=== PATIENT | female | born 1960 | race Caucasian/White ===

== ENCOUNTER 2019-02-25 11:56 | Emergency (ER) | payer MEDICAID, SELFPAY ==
[2019-02-25 13:19] VITALS: BP 133/84; PULSE 95; RESP 18; TEMP 36.6; O2SAT 95; BMI 28.3
--- NOTE | 2019-02-25 13:59 | XR_ITS ---
WS: [id number] Portable AP upright chest, 02/25/2019 Clinical Data: cough/congestion Comparison: Portable chest, 11/16/2018. Findings: No nodules, masses or effusions are seen. The heart is normal. The pulmonary vascularity is not increased. No pneumonia or pneumothorax is seen. There is an anterior cervical disc fusion. XR/XR chest 1V portable [id number] Impression: Negative chest.
[2019-02-25 14:41] LABS: Basophils # 0.1 10^3/uL (0.0-0.1); Eosinophils # 0.5 10^3/uL (0.0-0.8); Eosinophils % 3.4 %; Hematocrit 47.2 % (37.0-47.0); Hemoglobin 15.7 g/dL (11.5-15.3); Lymphocytes # 4.6 10^3/uL (0.8-4.8); Lymphocytes % 33.3 %; Mean Corpuscular HGB Conc 33.3 g/dL (30.0-36.0); Mean Corpuscular Hemoglobin 28.6 pg (28.0-34.0); Mean Corpuscular Volume 86.1 fL (81-99); Mean Platelet Volume 9.1 fL (7.4-10.4); Monocytes # 0.9 10^3/uL (0.2-0.9); Monocytes % 6.6 %; Neutrophils # 7.7 10^3/uL (1.8-7.7); Neutrophils % 55.4 %; Nucleated Red Blood Cells % 0 %; Platelet Count 435 10^3/cmm (130-400); Red Blood Count 5.48 10^6/uL (4.1-5.3); Red Cell Distribution Width 16.1 % (12.1-15.1); White Blood Count 13.9 10^3/uL (4.0-10.0)
--- NOTE | 2019-02-25 14:41 | ED_ITS ---
HPI - Back Pain/Injury General: Chief Complaint: Back Pain/Injury Stated Complaint: back pain/sob Time Seen by Provider: 02/25/19 14:41 Source: patient Mode of arrival: ambulatory Limitations: no limitations History of Present Illness: HPI Narrative: Patient patient is a 58-year-old female who presents to the ED today for complaints of cough and congestion over the past few days; she also has a complaint of acute on chronic lower back pain; patient states she has had back pain for many years with radiation into her legs; no new injury or trauma; she has no new neurological deficits; no saddle anesthesia or bowel or bladder dysfunction; she has not been running fevers; she has a history of COPD MD elicited complaint: back pain Pertinent past history: prior back pain Onset (ago): day(s) Timing: constant Similar Symptoms Previously: Yes Location: lumbar spine Radiation: left upper leg, right upper leg, left leg below the knee and right leg below the knee Exacerbating factors: movement and sitting upright Relieving factors: none Associated symptoms: Deny abdominal pain, chills, dysuria, fever(s), nausea, syncope or vomiting Work related injury: No Review of Systems Const: Denies: fever or chills Eyes: Denies: change in vision or blurry vision Card: Denies: chest pain, palpitations, irregular heart rhythm, lightheadedness, syncope or shortness of breath on exertion Resp: Reports: productive cough and chest congestion; Denies: shortness of breath, wheezing, stridor, pain on inspiration, change in phlegm color or coughing up blood GI: Denies: abdominal pain, nausea, vomiting, heartburn/indigestion or diarrhea : Denies: painful urination Musc: Reports: back pain; Denies: neck pain or joint pain Skin/Breast: Denies: rash PFSH ED PFSH: Statuses (acute, chronic, etc) shown below reflect problem list status a s previously entered and may not be historically accurate Social History Smoking and tobacco status: current every day smoker Physical Exam Const: COMMON NORMALS: no apparent distress, oriented x3 and alert GENERAL APPEARANCE: cooperative HENMT: COMMON NORMALS: normocephalic, head/scalp atraumatic, external ears normal, EAC's normal, TM's normal bilaterally and external nose normal HEAD & SCALP: normal to inspection, normocephalic and atraumatic FACE & SINUS: normal facial exam NOSE: external nose normal EXTERNAL EAR: Yes external ears normal EXTERNAL AUDITORY CANAL: EAC's normal TYMPANIC MEMBRANE: TM's normal bilaterally MOUTH: oral and palatal mucosa normal THROAT: posterior oropharynx normal, tonsils normal and uvula midline Eye: COMMON NORMALS: PERRL and EOMs intact bilaterally PUPIL: Yes PERRL Neck/C-Spine: COMMON NORMALS: full ROM, no lymphadenopathy, supple and no meningeal signs Resp: COMMON NORMALS: normal respiratory effort, no retractions and no use of accessory muscles AUSCULTATION: wheezes expiratory wheezes, scattered wheezes and throughout Cardio: COMMON NORMALS: regular rate and regular rhythm RATE: regular rate RHYTHM: regular rhythm GI: COMMON NORMALS: normal to inspection, nondistended, normoactive bowel sounds, soft to palpation, non-tender, no hepatosplenomegaly and no masses PALPATION: Yes soft and Yes no hepatosplenomegaly Back/Pelvis: LUMBAR SPINE/LOWER BACK: Yes lumbar spinal tenderness Lumbar spinal tenderness location: L3, L4 and L5 and Yes paraspinal muscle tenderness Lumbar paraspinal muscle tenderness: bilateral Extremity: COMMON NORMALS: normal to inspection GENERAL: Yes normal exam except as noted Neuro: COMMON NORMALS: oriented x3 SENSORIUM/ORIENTATION: Yes alert MENINGEAL SIGNS: Yes no meningeal signs Course Vital Signs: Vital signs: Vital Signs Temperature 97.9 F 02/25/19 13:19 Pulse Rate 102 H 02/25/19 15:42 Respiratory Rate 18 02/25/19 15:37 Blood Pressure 133/84 02/25/19 13:19 Pulse Oximetry 95 02/25/19 15:37 MDM - Back Pain/Injury Lab Data: Labs: Lab Results 02/25/19 02/25/19 Range/Units 14:33 14:33 WBC 13.9 H (4.0-10.0) 10^3/ uL RBC 5.48 H (4.1-5.3) 10^6/u L Hgb 15.7 H (11.5-15.3) g/dL Hct 47.2 H (37.0-47.0) % MCV 86.1 (81-99) fL MCH 28.6 (28.0-34.0) pg MCHC 33.3 (30.0-36.0) g/dL RDW 16.1 H (12.1-15.1) % Plt Count 435 H (130-400) 10^3/c mm MPV 9.1 (7.4-10.4) fL Neut % (Auto) 55.4 % Lymph % (Auto) 33.3 % [place] % (Auto) 6.6 % Eos % (Auto) 3.4 % Baso % (Auto) 1.0 % Neut # (Auto) 7.7 (1.8-7.7) 10^3/u L Lymph # (Auto) 4.6 (0.8-4.8) 10^3/u L Mobile # (Auto) 0.9 (0.2-0.9) 10^3/u L Eos # (Auto) 0.5 (0.0-0.8) 10^3/u L Baso # (Auto) 0.1 (0.0-0.1) 10^3/u L Nucleated RBC % (a uto) 0 % Nucleated RBCs # 0.0 /100WBC Sodium 133 L (136-145) mmol/L Potassium 4.1 (3.5-5.1) mmol/L Chloride 94 L (98-107) mmol/L Carbon Dioxide 26 (22-29) mmol/L Anion Gap 17.1 (5-19) BUN 11 (6-20) mg/dL Creatinine 0.7 (0.5-0.9) mg/dL GFR Calculation 86.2 L (90-130) mL/min Glucose 95 (74-109) mg/dL Calcium 10.4 H (8.6-10.0) mg/Dl Total Bilirubin 0.2 (0.15-1.2) mg/dL AST 10 (0-32) U/L ALT 12 (0-33) U/L Alkaline Phosphata se 113 H (35-105) IU/L Total Protein 8.0 (6.6-8.7) g/dL Albumin 4.4 (3.5-5.2) g/dL Globulin 3.6 (1.3-4.6) g/dL Imaging Data^: CXR: Radiologist's impression: [address] [address] XRay Report Signed Patient: Mackenzie Garcia MR#: [id number] : 1960 Acct:[id number] Age/Sex: 58 / F ADM Date: 02/25/19 Loc: ER Attending Dr: Ordering Physician: Jelly Navarro Date of Service: 02/25/19 Procedure(s): XR chest 1V portable [id number] Accession Number(s): [id number] Report Number: [id number] WS: [id number] Portable AP upright chest, 02/25/2019 Clinical Data: cough/congestion Comparison: Portable chest, 11/16/2018. Findings: No nodules, masses or effusions are seen. The heart is normal. The pulmonary vascularity is not increased. No pneumonia or pneumothorax is seen. There is an anterior cervical disc fusion. XR/XR chest 1V portable [id number] Impression: Negative chest. Dictated By: Carolee Dwyer MD Signed By: Carolee Dwyer MD Signed Date/Time:02/25/191412 DD/ 11 Discharge Plan Discharge Patient Disposition: Home, Self-Care Clinical Impression: Acute exacerbation of chronic low back pain, Acute exacerbation of chronic obstructive pulmonary disease Condition: Stable Prescriptions: New prednisone 10 mg tablet 60 mg PO DAILY 5 Days Qty: 30 RF: 0 doxycycline monohydrate 100 mg capsule 100 mg PO Q12H 7 Days Qty: 14 RF: 0 No Action alprazolam [Xanax] 0.25 mg tablet 0.25 mg PO .every 6 hours PRN (Reason: anxiety) Qty: 45 RF: 0 levalbuterol tartrate 45 mcg/actuation HFA aerosol inhaler 2 inh INHALATION Q6H PRN (Reason: shortness of breath or wheezing) Qty: 15 RF: 3 Serevent Diskus 50 mcg/dose Blister With Device 1 inh INHALATION BID RF: 0 Xopenex HFA 45 mcg/actuation Hfa Aerosol Inhaler 2 puff INHALATION QID RF: 0 Referrals: Davis Atkinson MD [Primary Care Provider] - Discharge Diet: Usual diet Patient Instructions: Chronic Obstructive Pulmonary Disease (ED), Chronic Back Pain (ED) Activity Restrictions/Additional Instructions: Follow-up with primary care in a week for continued symptoms. Coding Level of Care Code ED Char Filter Tank Tender Head for Chg Fwd Exam Problem Focused
[2019-02-25 15:09] LABS: Alanine Aminotransferase 12 U/L (0-33); Albumin Level 4.4 g/dL (3.5-5.2); Alkaline Phosphatase 113 IU/L (35-105); Anion Gap 17.1 (5-19); Aspartate Amino Transferase 10 U/L (0-32); Blood Urea Nitrogen 11 mg/dL (6-20); Calcium 10.4 mg/Dl (8.6-10.0); Carbon Dioxide 26 mmol/L (22-29); Chloride 94 mmol/L (98-107); Globulin 3.6 g/dL (1.3-4.6); Glomerular Filtration Rate 86.2 mL/min (90-130); Glucose 95 mg/dL (74-109); Potassium 4.1 mmol/L (3.5-5.1); Sodium 133 mmol/L (136-145); Total Bilirubin 0.2 mg/dL (0.15-1.2)
[2019-02-25 15:10] LABS: Slide Review Slide Review Perform
[2019-02-25] MEDS: ipratropium 0.5 mg/2.5 mL Neb INHALATION (15:36)
[2019-02-25 15:37] VITALS: PULSE 102; RESP 18; O2SAT 95
[2019-02-25 15:42] VITALS: PULSE 102
[2019-02-25 15:48] VITALS: BP 111/87; PULSE 102; RESP 20; O2SAT 92
== END 2019-02-25 15:48 | disposition home or self-care (01) ==
PROVIDERS: Physician Assistant; Emergency Provider Emergency Medicine; Family Provider Internal Medicine; PCP Internal Medicine
DX: G89.29 Other chronic pain (principal); M54.5 Low back pain; J44.1 Chronic obstructive pulmonary disease with (acute) exacerbation; F17.210 Nicotine dependence, cigarettes, uncomplicated
CPT/HCPCS: 36415; 71045; 80053; 85025; 99281; 99283; J7611; J7644

== ENCOUNTER 2019-03-12 13:07 | Outpatient (RCR) | payer MEDICAID, SELFPAY | END 2019-03-22 23:59 | disposition home or self-care (01) | LOC: SPT 13:07 | PROVIDERS: Family Provider Internal Medicine; PCP Internal Medicine; Visit Provider Internal Medicine | DX: G89.29 Other chronic pain (principal); M54.5 Low back pain | CPT/HCPCS: 97110; 97161 ==

== ENCOUNTER 2019-03-25 06:00 | Outpatient (RCR) | payer MEDICAID, SELFPAY | END 2019-04-10 23:00 | disposition home or self-care (01) | LOC: SPT 06:00 | PROVIDERS: Family Provider Internal Medicine; PCP Internal Medicine; Visit Provider Internal Medicine | DX: Z76.89 Persons encountering health services in other specified circumstances (principal) ==

== ENCOUNTER 2019-08-26 19:36 | Emergency (ER) | payer MEDICAID, SELFPAY ==
[2019-08-26] VITALS (8 sets, daily range): BP systolic 117–156; BP diastolic 81–94; PULSE 81–91; RESP 16–17; TEMP 37.1; O2SAT 92–96; BMI 28.5
[2019-08-26 19:55] LABS: Glucose Point of Care 175 mg/dL (70-110)
[2019-08-26 20:26] LABS: Basophils # 0.1 10^3/uL (0.0-0.1); Basophils % 0.7 %; Eosinophils # 0.4 10^3/uL (0.0-0.8); Eosinophils % 3.4 %; Hematocrit 41.9 % (37.0-47.0); Lymphocytes # 2.6 10^3/uL (0.8-4.8); Lymphocytes % 21.2 %; Mean Corpuscular Hemoglobin 26.7 pg (28.0-34.0); Mean Platelet Volume 9.4 fL (7.4-10.4); Monocytes % 8.5 %; Nucleated Red Blood Cells % 0 %; Platelet Count 373 10^3/cmm (130-400); Red Blood Count 4.87 10^6/uL (4.1-5.3); Red Cell Distribution Width 15.9 % (12.1-15.1); White Blood Count 12.2 10^3/uL (4.0-10.0)
--- NOTE | 2019-08-26 20:41 | ED_ITS ---
HPI - Abdominal Pain General: Chief Complaint: Abdominal Pain Stated Complaint: CRAMPS Time Seen by Provider: 08/26/19 19:51 History of Present Illness: HPI narrative: 58-year-old lady with 2 distinct complaints. The first is that of discomfort swelling and redness around her left eye. She states her vision is fine. No intense pain with extraocular movements. She has had a low-grade temp of 99 the past couple of days. She has a history of periorbital cellulitis on the right. The second complaint is that of abdominal cramping on and off for 2 months. No vaginal bleeding. She states she has vaginal itching. No vomiting or diarrhea. MD elicited complaint: abdominal pain and other (Pain and swelling around the eye, left side) Pertinent past history: other (Periorbital cellulitis on the right) Onset (ago): day(s) (3) Pain Consistency: intermittent Location: Periumbilical and Suprapubic Severity: similar to previous episodes Quality: cramping Radiation: suprapubic Migration to: no migration Relieving factors: nothing Associated Symptoms: Reports GI cramping and fever(s); Denies coffee ground emesis, diarrhea, dysuria, hematuria, hematemesis, loose stools, nausea and vomiting Review of Systems Const: Reports: fever(s) Eyes: Denies: change in vision or blurry vision ENMT: Denies: odynophagia, swelling of lips/tongue, bleeding gums, dental pain, change in hearing, epistaxis, post nasal drip or sinus pain Card: Denies: chest pain, palpitations, irregular heart rhythm, edema, swelling of feet/ankles, dyspnea on exertion or orthopnea Resp: Denies: dyspnea, productive cough, non-productive cough or wheezing GI: Reports: GI cramping; Denies: nausea, vomiting, hematemesis, coffee ground emesis or diarrhea : Denies: dysuria or hematuria Musc: Denies: neck pain, back pain, joint redness or joint warmth Skin/Breast: Denies: rash, pruritus or erythema Neuro: Denies: headache(s), dizziness, vertigo, confusion or seizure-like activity Psych: Denies: anxiety, visual hallucinations or auditory hallucinations PFSH ED PFSH: Family History Grandmother Diabetes Social History Smoking and tobacco status: current every day smoker Female Reproductive History: : 4 Physical Exam Const: GENERAL APPEARANCE: well developed ORIENTATION/CONSCIOUSNESS: Yes oriented to person, Yes oriented to place and Yes oriented to time HENMT: COMMON NORMALS: external ears normal and Normal external nose present FACE & SINUS: erythema on the left (With mild swelling) periorbital NOSE: Normal external nose present and No nasal discharge present EXTERNAL EAR: Yes external ears normal MOUTH: tongue normal Eye: COMMON NORMALS: Equal, round and reactive pupils present, EOMs intact bilaterally and conjunctivae normal EYELID: eyelids normal CONJUNCTIVA: Yes conjunctivae normal PUPIL: Yes Equal, round and reactive pupils present Neck/C-Spine: GENERAL: No tracheal deviation Chest: COMMONS NORMALS: normal inspection of the chest CHEST: No tenderness Resp: COMMON NORMALS: clear to auscultation bilaterally EFFORT & INSPECTION: No tachypneic, No respiratory distress, No retractions, No uses accessory muscles and No tracheal deviation AUSCULTATION: clear to auscultation bilaterally, no rhonchi, no wheezes and lung sounds not diminished Cardio: COMMON NORMALS: regular rate and regular rhythm RATE: regular rate RHYTHM: regular rhythm HEART SOUNDS: no murmurs PERIPHERAL PULSES: radial pulses present GI: INSPECTION: No abdominal distension AUSCULTATION: No Hyperactive bowel sounds present and No Hypoactive bowel sounds present PALPATION: No Guarding due to palpation present (GI) and No Rigid due to palpation PERCUSSION: no dullness to percussion and no tympanic to percussion : COMMON NORMALS: Yes no CVA tenderness BLADDER/KIDNEY EXAM: Yes no CVA tenderness Back/Pelvis: COMMON NORMALS: no CVA tenderness Neuro: SENSORIUM/ORIENTATION: Yes oriented to person, Yes oriented to place and Yes oriented to time Psych: COMMON NORMALS: mental status grossly normal Course Vital Signs: Vital signs: Vital Signs Temperature 98.7 F 08/26/19 19:37 Pulse Rate 86 08/26/19 22:21 Respiratory Rate 16 08/26/19 22:21 Blood Pressure 122/87 08/26/19 22:21 Pulse Oximetry 92 08/26/19 22:21 MDM - Abdominal Pain MDM Narrative: Medical decision making narrative: Urinalysis does not reveal urinary tract infection. Symptoms are suspicious for bacterial vaginosis. She also probably has early periorbital cellulitis. 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 She will also be placed on Flagyl for bacterial vaginosis. Primary care follow-up. Lab Data: Labs: Lab Results 08/26/19 08/26/19 08/26/19 Range/Units 19:49 20:18 20:18 WBC 12.2 H (4.0-10.0) 10^3/ uL RBC 4.87 (4.1-5.3) 10^6/u L Hgb 13.0 (11.5-15.3) g/dL Hct 41.9 (37.0-47.0) % MCV 86.0 (81-99) fL MCH 26.7 L (28.0-34.0) pg MCHC 31.0 (30.0-36.0) g/dL RDW 15.9 H (12.1-15.1) % Plt Count 373 (130-400) 10^3/c mm MPV 9.4 (7.4-10.4) fL Neut % (Auto) 66.0 % Lymph % (Auto) 21.2 % [place] % (Auto) 8.5 % Eos % (Auto) 3.4 % Baso % (Auto) 0.7 % Neut # (Auto) 8.0 H (1.8-7.7) 10^3/u L Lymph # (Auto) 2.6 (0.8-4.8) 10^3/u L [place] # (Auto) 1.0 H (0.2-0.9) 10^3/u L Eos # (Auto) 0.4 (0.0-0.8) 10^3/u L Baso # (Auto) 0.1 (0.0-0.1) 10^3/u L Nucleated RBC % (a uto) 0 % Nucleated RBCs # 0.0 /100WBC Sodium 136 (136-145) mmol/L Potassium 3.5 (3.5-5.1) mmol/L Chloride 102 (98-107) mmol/L Carbon Dioxide 22 (22-29) mmol/L Anion Gap 15.5 (5-19) BUN 5 L (6-20) mg/dL Creatinine 0.6 (0.5-0.9) mg/dL GFR Calculation 103.0 (90-130) mL/min Glucose 130 H (65-115) mg/dL POC Glucose 175 (70-110) mg/dL Calculated Osmolal ity 279 L (285-295) mOsm/k g Lactate (0.5-2.2) mmol/L Calcium 9.4 (8.5-10.5) mg/dL Total Bilirubin 0.2 (0.15-1.2) mg/dL AST 12 (0-32) U/L ALT 10 (0-33) U/L Alkaline Phosphata se 65 (35-105) IU/L C-Reactive Protein 8.7 H (0.0-4.9) mg/L Total Protein 6.9 (6.6-8.7) g/dL Albumin 3.9 (3.5-5.2) g/dL Globulin 3.0 (1.3-4.6) g/dL Lipase 28 (13-60) U/L Urine Color (Yellow) Urine Appearance (CLEAR) Urine pH (5-7) Ur Specific Gravit y (1.005-1.030) Urine Protein (Negative) Urine Glucose (UA) (Normal) Urine Ketones (Negative) Urine Blood (Negative) Urine Nitrate (Negative) Urine Bilirubin (NEGATIVE) Urine Urobilinogen (Negative) mg/dL Ur Leukocyte Merary ase (Negative) Urine RBC (0-2) /hpf Urine WBC (0-5) /hpf Ur Squamous Epith Cells (0-5) Amorphous Sediment Urine Bacteria (NONE) Urine Mucus 08/26/19 08/26/19 Range/Units 20:18 20:29 WBC (4.0-10.0) 10^3/ uL RBC (4.1-5.3) 10^6/u L Hgb (11.5-15.3) g/dL Hct (37.0-47.0) % MCV (81-99) fL MCH (28.0-34.0) pg MCHC (30.0-36.0) g/dL RDW (12.1-15.1) % Plt Count (130-400) 10^3/c mm MPV (7.4-10.4) fL Neut % (Auto) % Lymph % (Auto) % [place] % (Auto) % Eos % (Auto) % Baso % (Auto) % Neut # (Auto) (1.8-7.7) 10^3/u L Lymph # (Auto) (0.8-4.8) 10^3/u L [place] # (Auto) (0.2-0.9) 10^3/u L Eos # (Auto) (0.0-0.8) 10^3/u L Baso # (Auto) (0.0-0.1) 10^3/u L Nucleated RBC % (a uto) % Nucleated RBCs # /100WBC Sodium (136-145) mmol/L Potassium (3.5-5.1) mmol/L Chloride (98-107) mmol/L Carbon Dioxide (22-29) mmol/L Anion Gap (5-19) BUN (6-20) mg/dL Creatinine (0.5-0.9) mg/dL GFR Calculation (90-130) mL/min Glucose (65-115) mg/dL POC Glucose (70-110) mg/dL Calculated Osmolal ity (285-295) mOsm/k g Lactate 1.2 (0.5-2.2) mmol/L Calcium (8.5-10.5) mg/dL Total Bilirubin (0.15-1.2) mg/dL AST (0-32) U/L ALT (0-33) U/L Alkaline Phosphata se (35-105) IU/L C-Reactive Protein (0.0-4.9) mg/L Total Protein (6.6-8.7) g/dL Albumin (3.5-5.2) g/dL Globulin (1.3-4.6) g/dL Lipase (13-60) U/L Urine Color Straw (Yellow) Urine Appearance Hazy A (CLEAR) Urine pH 5 (5-7) Ur Specific Gravit y 1.010 (1.005-1.030) Urine Protein Neg (Negative) Urine Glucose (UA) 4+ H (Normal) Urine Ketones Negative (Negative) Urine Blood Neg (Negative) Urine Nitrate Negative (Negative) Urine Bilirubin Neg (NEGATIVE) Urine Urobilinogen Norm (Negative) mg/dL Ur Leukocyte Merary ase Negative (Negative) Urine RBC 0-4 H (0-2) /hpf Urine WBC None (0-5) /hpf Ur Squamous Epith Cells 5-10 H (0-5) Amorphous Sediment Not Reportable Urine Bacteria 1+ H (NONE) Urine Mucus 1+ Discharge Plan Discharge Patient Disposition: Home, Self-Care Clinical Impression: Vaginosis, Periorbital cellulitis of left eye Condition: Stable Prescriptions: New doxycycline hyclate 100 mg capsule 100 mg PO BID 10 Days Qty: 20 RF: 0 Flagyl 500 mg tablet 500 mg PO Q8H 10 Days Qty: 30 RF: 0 No Action tizanidine 4 mg capsule 4 mg PO BID PRN (Reason: muscle spasticity) Qty: 60 RF: 0 aripiprazole 2 mg tablet 2 mg PO QDAY Qty: 30 RF: 5 Synjardy 12.5-1,000 mg tablet 1 tab PO BID Qty: 60 RF: 3 albuterol sulfate [Proventil HFA] 90 mcg/actuation HFA aerosol inhaler 1 inh INHALATION QID PRN (Reason: shortness of breath or wheezing) Qty: 8 RF: 3 omeprazole 20 mg capsule,delayed release(DR/EC) 20 mg PO DAILY 84 Days Qty: 30 RF: 5 gabapentin 800 mg tablet 800 mg PO TID Qty: 90 RF: 1 Serevent Diskus 50 mcg/dose blister with device 1 inh INHALATION BID Qty: 60 RF: 3 glimepiride 4 mg tablet 4 mg PO BID Qty: 60 RF: 5 ibuprofen 200 mg Tablet 200 mg PO Q6H PRN (Reason: Pain) RF: 0 venlafaxine 75 mg capsule,extended release 24hr 225 mg PO DAILY MDD 3 RF: 0 Xanax 0.25 mg tablet 0.25 mg PO Q6H PRN (Reason: anxiety) RF: 0 Celebrex 400 mg capsule 400 mg PO DAILY RF: 0 Discharge Orders: Discharge Order (Routine); Ordered 08/26/19 Ordered By: Bart Pappas Referrals: Davis Atkinson MD [Primary Care Provider] - 4-7 days Discharge Diet: Usual diet Discharge Activity: Increase activity as tolerated Patient Instructions: Bacterial Vaginosis (ED), Periorbital Cellulitis Coding Level of Care Code ED Manager Clinical Pharmacy for Chg Fwd Exam Comprehensive
[2019-08-26 20:47] LABS: Lactate (Lactic Acid level) 1.2 mmol/L (0.5-2.2)
[2019-08-26 20:48] LABS: Alanine Aminotransferase 10 U/L (0-33); Albumin Level 3.9 g/dL (3.5-5.2); Alkaline Phosphatase 65 IU/L (35-105); Anion Gap 15.5 (5-19); Aspartate Amino Transferase 12 U/L (0-32); Blood Urea Nitrogen 5 mg/dL (6-20); Calcium 9.4 mg/dL (8.5-10.5); Carbon Dioxide 22 mmol/L (22-29); Chloride 102 mmol/L (98-107); Glucose 130 mg/dL (65-115); Lipase 28 U/L (13-60); Osmolality Calculated 279 mOsm/kg (285-295); Potassium 3.5 mmol/L (3.5-5.1); Sodium 136 mmol/L (136-145); Total Bilirubin 0.2 mg/dL (0.15-1.2); Total Protein 6.9 g/dL (6.6-8.7)
[2019-08-26 20:57] LABS: Add Urine Microscopic? YES; Bilirubin Urine Neg (NEGATIVE); Blood Urine Neg (Negative); Glucose Urine UA 4+ (Normal); Ketones Urine Negative (Negative); Leukocyte Esterase Urine Negative (Negative); Nitrate Urine Negative (Negative); Protein Urine Neg (Negative); Urine Appearance Hazy (CLEAR); Urine Color Straw (Yellow); Urobilinogen Urine Norm (Negative); pH Urine 5 (5-7)
[2019-08-26 21:00] LABS: Add Urine Culture? No; Bacteria Urine 1+; Mucus Urine 1+; RBC Urine 0-4 /hpf (0-2)
[2019-08-26] MEDS: metroNIDAZOLE 500 MG Tablet PO (21:39)
[2019-08-26] MEDS: fluconazole 100 mg Tablet 150 MG PO (21:39)
[2019-08-26 21:40] LABS: C Reactive Protein 8.7 mg/L (0.0-4.9)
[2019-08-26] MEDS: oxyCODONE-APAP 5-325 mg Tablet 2 TAB PO (21:40)
[2019-08-26] MEDS: doxycycline 100 mg Tablet PO (21:40)
== END 2019-08-26 23:38 | disposition home or self-care (01) ==
PROVIDERS: Emergency Provider Emergency Medicine; PCP Internal Medicine
DX: N76.0 Acute vaginitis (principal); L03.213 Periorbital cellulitis; F17.210 Nicotine dependence, cigarettes, uncomplicated
CPT/HCPCS: 12345; 36415; 36416; 80053; 81001; 81003; 82962; 83605; 83690; 85025; 86140; 96360; 99282; 99283

== ENCOUNTER 2019-11-02 10:15 | Emergency (ER) | payer MEDICAID, SELFPAY ==
[2019-11-02 10:21] VITALS: BP 149/96; PULSE 95; RESP 18; TEMP 36.8; O2SAT 93; BMI 28.7
--- NOTE | 2019-11-02 10:30 | ED_ITS ---
HPI - General Adult General: Chief complaint: General Medical Stated complaint: FACE SWOLLEN Time Seen by Provider: 11/02/19 10:19 Source: patient Mode of arrival: ambulatory Limitations: no limitations History of Present Illness: HPI narrative: Patient is a 59-year-old female who presents to ED today with a complaint of facial swelling that she has noticed over the past 3 days. Patient tells me she feels like she has swollen under her eyes and over her maxillary sinuses as well as her nose. She is complaining of sinus pain and nasal discharge. She does tell me she has a history of allergic rhinitis. Patient reports being treated for a periorbital cellulitis a few months ago and states her pain/symptoms feel similar. She is not having any painful swallowing. No visual changes. Pain Consistency: constant Relieving factors: none Exacerbating factors: none Associated symptoms: Reports no associated symptoms; Deny headache(s), malaise, nausea, rash or vomiting Treatments prior to arrival: none Review of Systems Const: Denies: fever(s), chills, body aches, fatigue or malaise Eyes: Denies: change in vision, blurry vision, photophobia, floaters or seeing flashes ENMT: Reports: nasal discharge, nasal congestion and sinus pain; Denies: throat pain, enlarged tonsils, odynophagia, mouth pain, swelling of lips/tongue, oral sores, ear or mastoid pain, ear discharge or epistaxis GI: Denies: nausea or vomiting Musc: Denies: neck pain Skin/Breast: Denies: rash Neuro: Denies: headache(s) FORMERLY [facility], [facility]–1983 ED PFSH: Medical History (Updated 11/02/19 @ 10:34 by LISET Worrell) COPD (chronic obstructive pulmonary disease) Diabetes Family History Grandmother Diabetes Social History (Updated 10/17/19 @ 09:25 by SOL Garcia) Smoking and tobacco status: current every day smoker Alcohol intake: former Adopted: No Marital status: Legally Number of children: 4 service: No History of recent travel: No Current gender identity: Female Physical Exam Const: COMMON NORMALS: no acute distress, patient oriented x3, no limitations and alert HENMT: COMMON NORMALS: normocephalic, atraumatic, hearing grossly normal bilaterally, external ears normal, EAC's normal, TM's normal bilaterally, Normal nasal mucous membranes and turbinates present, moist oral mucous membranes, oropharynx normal and gingiva normal HEAD & SCALP: normal to inspection, normocephalic and atraumatic FACE & SINUS: sinus tenderness maxillary, erythema (to nose) and edema (nose-questionable whether this is just normal for patient) NOSE: Normal nares present, No nasal polyps present and Normal nasal mucous membranes and turbinates present EXTERNAL EAR: Yes external ears normal EXTERNAL AUDITORY CANAL: EAC's normal TYMPANIC MEMBRANE: TM's normal bilaterally MOUTH: Normal oral and palatal mucosa present, lip normal and tongue normal TEETH & GINGIVA: Yes edentulous THROAT: posterior oropharynx normal, tonsils normal and uvula midline Eye: COMMON NORMALS: Equal, round and reactive pupils present, EOMs intact bilaterally, conjunctivae normal and no scleral icterus GENERAL EYE: appearance normal, both eyes and all related structures PERIORBITAL: periorbital findings normal EYELID: eyelids normal CONJUNCTIVA: Yes conjunctivae normal PUPIL: Yes Equal, round and reactive pupils present OTHER: I do not appreciate any periorbital swelling or redness. Neck/C-Spine: COMMON NORMALS: full ROM, no lymphadenopathy and no meningeal signs Neuro: COMMON NORMALS: patient oriented x3 SENSORIUM/ORIENTATION: Yes alert MENINGEAL SIGNS: Yes no meningeal signs Skin: NARRATIVE SKIN EXAM: Normal skin exam apart from maybe some possible erythema to patient's nose. Course Vital Signs: Vital signs: Vital Signs Temperature 98.2 F 11/02/19 10:21 Pulse Rate 95 11/02/19 10:21 Respiratory Rate 18 11/02/19 10:21 Blood Pressure 149/96 11/02/19 10:21 Pulse Oximetry 93 11/02/19 10:21 MDM - General Adult MDM Narrative: Medical decision making narrative: Patient states her symptoms today are similar to when she had periorbital cellulitis however this note was reviewed by myself and her complaints at that time do not sound anything similar to what she is experiencing today. She is complaining of facial swelling however I do not appreciate much facial swelling. She possibly has some erythema and edema to her nose although this could just be normal for patient. She is tender to palpation over her maxillary sinuses and over her nose. There is no nasal abscess visualized. She has no neurological facial deficits. We will go ahead and treat her with Augmentin and Flonase for possible sinusitis. We will have her follow-up with ENT for further evaluation. Discharge Plan Discharge Patient Disposition: Home Clinical Impression: Cellulitis of external nose Sinusitis Qualifiers: Sinusitis location: maxillary Chronicity: acute Recurrence: not specified as recurrent Qualified Code(s): J01.00 - Acute maxillary sinusitis, unspecified Condition: Stable Prescriptions: New Augmentin 875-125 mg tablet 1 tab PO Q12H 7 Days Qty: 14 RF: 0 Flonase Allergy Relief 50 mcg/actuation spray,suspension 2 spray INTRANASAL DAILY PRN (Reason: nasal congestion) Qty: 9.9 RF: 0 No Action tizanidine 4 mg capsule 4 mg PO BID PRN (Reason: muscle spasticity) Qty: 60 RF: 0 prednisone 10 mg tablet See Rx Instructions .Route .COMPLEX Qty: 1 RF: 0 omeprazole 20 mg capsule,delayed release(DR/EC) 20 mg PO DAILY 84 Days Qty: 30 RF: 5 Serevent Diskus 50 mcg/dose blister with device 1 inh INHALATION BID Qty: 60 RF: 3 glimepiride 4 mg tablet 4 mg PO BID Qty: 60 RF: 5 Xanax 0.25 mg tablet 0.25 mg PO Q6H PRN (Reason: anxiety) Qty: 45 RF: 2 albuterol sulfate [Proventil HFA] 90 mcg/actuation HFA aerosol inhaler 1 inh INHALATION QID PRN (Reason: shortness of breath or wheezing) Qty: 8 RF: 3 aripiprazole 2 mg tablet 2 mg PO QDAY Qty: 30 RF: 5 Synjardy 12.5-1,000 mg tablet 1 tab PO BID Qty: 60 RF: 3 gabapentin 800 mg tablet 800 mg PO TID Qty: 90 RF: 1 ibuprofen 200 mg Tablet 200 mg PO Q6H PRN (Reason: Pain) RF: 0 venlafaxine 75 mg capsule,extended release 24hr 225 mg PO DAILY MDD 3 RF: 0 Celebrex 400 mg capsule 400 mg PO DAILY RF: 0 Discharge Orders: Discharge Order (Routine); Ordered 11/02/19 Ordered By: Jelly Navarro Referrals: Davis Atkinson MD [Primary Care Provider] - Activity Restrictions/Additional Instructions: As discussed we will have 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 You may return to the ED for worsening pain, swelling, redness, fevers, or any other concerns you may have. Coding Level of Care Code ED Microbiological Lab Technician for Hattie Blandon
== END 2019-11-02 10:35 | disposition home or self-care (01) ==
LOC: ER 11:08
PROVIDERS: Emergency Provider Physician Assistant; PCP Internal Medicine
DX: J01.00 Acute maxillary sinusitis, unspecified (principal); J34.0 Abscess, furuncle and carbuncle of nose; J44.9 Chronic obstructive pulmonary disease, unspecified; E11.9 Type 2 diabetes mellitus without complications; F17.210 Nicotine dependence, cigarettes, uncomplicated
CPT/HCPCS: 12345; 99282

== ENCOUNTER → 2020-08-11 13:09 | Outpatient (BNVA) | payer MEDICAID, SELFPAY | PROVIDERS: PCP Internal Medicine; Visit Provider Internal Medicine | DX: Z01.812 Encounter for preprocedural laboratory examination (principal); Z20.822 Contact with and (suspected) exposure to COVID-19; Z11.52 Encounter for screening for COVID-19 | CPT/HCPCS: 87635 ==

== ENCOUNTER 2020-08-17 08:46 | Day surgery (SDC) | payer MEDICAID, SELFPAY ==
--- NOTE | 2020-08-17 09:09 | ANES.PREANE2 ---
Pre-Anesthetic Assessment Pre-Anesthetic Assessment: Height/Weight: Height 1.57 m Weight 68.946 kg Proposed Procedure: Operation Date: 08/17/20 10:45 Proposed Procedures p Colonoscopy 42852 Z12.11(Not Applicable) - Davis Atkinson MD Was Beta Seble taken within 24 hours: N/A Social: Social History: Tobacco and No alcohol Exam: Pre-Anes Outpt Exam: alert, oriented x 3 and regular rate & rhythm Airway: Submandibular: WNL Cervical ROM: WNL MP: 2 Dentition: False Pulmonary: Pulmonary: COPD GI: GI: GERD Metabolic: Metabolic: DM Neuropsych: Neuropsych: Anxiety and Depression Anesthetic Plan: ASA status: 3 Anesthesia: MAC Risk of > 500 ml blood loss (7ml/kg in children): No PFSH Anesthesia PFSH: Medical History COPD (chronic obstructive pulmonary disease) Diabetes Surgical History H/O tubal ligation History of carpal tunnel surgery Family History Grandmother Diabetes Social History Smoking and tobacco status: current every day smoker Alcohol intake: former Adopted: No Marital status: Legally Number of children: 4 service: No History of recent travel: No Current gender identity: Female Data Anesthesia Cardiac Studies: No Data to Display
--- NOTE | 2020-08-17 09:29 | P.HP_ITS ---
Same Day Surgery H&P Indication for Procedure/HPI DATE OF PROCEDURE: August 17, 2020 CHIEF COMPLAINT/INDICATIONFOR SURGICAL PROCEDURE: Screening PREOP DIAGNOSIS: Screening PLANNED PROCEDRUE: Operation Date: 08/17/20 10:45 Proposed Procedures p Colonoscopy 86417 Z12.11(Not Applicable) - Davis Atkinson MD Medications/Allergies* Home Medications Medication Instructions Recorded Confirmed Type ibuprofen 200 mg PO Q6H PRN 08/26/19 08/14/20 History Allergies/Adverse Reactions Allergy/AdvReac Type Severity Reaction Status Date / Time No Known Allergies Allergy Verified 08/11/20 13:46 Pertinent History/Comorbid Conditions* Medical History (Updated 11/10/19 @ 00:00 by ) COPD (chronic obstructive pulmonary disease) Diabetes Surgical History (Updated 08/12/20 @ 12:20 by Magdalena Peguero DO) H/O tubal ligation History of carpal tunnel surgery Family History (Updated 02/27/19 @ 13:34 by SOL Garcia) Diabetes Grandmother Social History Smoking and tobacco status: current every day smoker Alcohol intake: former Adopted: No Marital status: Legally Number of children: 4 service: No History of recent travel: No Current gender identity: Female Pertinent Exam Findings alert, oriented x 3, clear to auscultation bilaterally, regular rate & rhythm, operative site marked and procedure specific exam findings Recommendations Surgery/Procedure today Coding Level of Care Code Acute 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
[2020-08-17 09:39] VITALS: BP 112/74; PULSE 92; RESP 18; TEMP 36.4; O2SAT 97
[2020-08-17 10:00] LABS: Glucose Point of Care 133 mg/dL (70-110)
[2020-08-17] MEDS: sodium chloride 0.9% 1,000 ML 30 ML IV (10:01)
[2020-08-17 11:15] VITALS: BP 79/57; PULSE 83; RESP 16; TEMP 36.3; O2SAT 97
[2020-08-17 11:29] VITALS: BP 101/78; PULSE 86; RESP 18; O2SAT 97
--- NOTE | 2020-08-17 15:28 | ANE.PACU2 ---
Inpatient post-anesthesia follow up: Airway intact: Yes Vital signs: Temperature 97.4 F Pulse Rate 86 Respiratory Rate 18 Blood Pressure 101/78 Pulse Oximetry 97 Oxygen Delivery Me thod Room Air Oxygen Flow Rate 3 Fraction of Inspir ed Oxygen Hydration adequate: Yes Nausea and vomiting: No Pain level: 1 Mental status: Baseline
== END 2020-08-17 11:52 | disposition home or self-care (01) ==
PROVIDERS: PCP Internal Medicine; Visit Provider Internal Medicine
PROC: 0DJD8ZZ Inspection of Lower Intestinal Tract, Via Natural or Artificial Opening Endoscopic (ICD-10-PCS; CPT 45378; principal; 2020-08-17 10:45)
DX: Z12.11 Encounter for screening for malignant neoplasm of colon (principal); J44.9 Chronic obstructive pulmonary disease, unspecified; E11.9 Type 2 diabetes mellitus without complications; F17.210 Nicotine dependence, cigarettes, uncomplicated; K21.9 Gastro-esophageal reflux disease without esophagitis; F41.9 Anxiety disorder, unspecified; F32.9 Major depressive disorder, single episode, unspecified; Z83.3 Family history of diabetes mellitus
CPT/HCPCS: 36416; 45378; 82962; 96360; J2704; J7030

== ENCOUNTER 2021-07-21 14:34 | Emergency (ER) | payer MEDICAID, SELFPAY ==
[2021-07-21 14:39] VITALS: BP 138/102; PULSE 104; RESP 20; TEMP 36.9; O2SAT 93
--- NOTE | 2021-07-21 15:51 | W.ED.GENADLT ---
HPI - General Adult General: Chief complaint: General Medical Stated complaint: high blood sugar/sweating/dizziness Time Seen by Provider: 07/21/21 15:29 Source: patient Mode of arrival: ambulatory Limitations: no limitations History of Present Illness: Patient is a 60-year-old female who presents to ED today with request for medication refills. Patient tells me she had a primary care provider down in [place] that was prescribing her medications however she has recently moved to the area and does not have a primary care provider yet. Patient states she was on medications for diabetes and COPD and states she has been out of them for almost a month. She states her blood sugars have been running high. She normally treated her diabetes with metformin and glimepiride. She states while on these medications her diabetes was controlled. She states earlier today she did feel a little sweaty but this has resolved since arrival to the ED. she is completely asymptomatic during my initial assessment. She states she does not want any kind of work-up/labs performed today. She is just kindly requesting refills until she can get a primary care provider. Associated symptoms: Reports dyspnea (chronic-at baseline); Deny chest pain, headache(s), malaise, nausea, rash, palpitations, syncope or vomiting Review of Systems Const: Denies: fever(s), chills, body aches, fatigue or malaise Eyes: Denies: change in vision or blurry vision Card: Denies: chest pain, palpitations, irregular heart rhythm, lightheadedness, syncope or dyspnea on exertion Resp: Reports: dyspnea (chronic-at baseline); Denies: productive cough or pain on inspiration GI: Denies: abdominal pain, nausea, vomiting, heartburn or diarrhea : Denies: dysuria Musc: Denies: neck pain, back pain or joint pain Skin/Breast: Denies: rash Neuro: Denies: headache(s), numbness in extremities, weakness in extremities, sensory changes or difficulty walking [facility] PFSH: Medical History COPD (chronic obstructive pulmonary disease) Diabetes Surgical History H/O tubal ligation History of carpal tunnel surgery Family History Grandmother Diabetes Social History Smoking and tobacco status: current every day smoker Alcohol intake: former Adopted: No Marital status: Legally Number of children: 4 service: No History of recent travel: No Current gender identity: Female Physical Exam Const: COMMON NORMALS: no acute distress, patient oriented x3, no limitations and alert GENERAL APPEARANCE: cooperative ORIENTATION/CONSCIOUSNESS: Yes awake, Yes oriented to person, Yes oriented to place and Yes oriented to time HENMT: COMMON NORMALS: normocephalic and atraumatic HEAD & SCALP: normal to inspection, normocephalic and atraumatic Resp: COMMON NORMALS: normal respiratory effort Cardio: COMMON NORMALS: regular rate and regular rhythm RATE: regular rate RHYTHM: regular rhythm GI: COMMON NORMALS: Soft to palpation and non-tender INSPECTION: Yes normal to inspection PALPATION: Yes Soft to palpation Extremity: COMMON NORMALS: normal to inspection, no clubbing, cyanosis or edema, no calf tenderness and no pedal edema Neuro: VÍCTOR COMA SCALE: document GCS findings Víctor coma scale eye opening: Spontaneous [place] coma scale verbal response: Orientated [place] coma scale motor response: Obey commands Víctor coma scale total score: 15 COMMON NORMALS: patient oriented x3, moves all extremities, no focal motor deficits, no sensory deficits noted and gait normal SENSORIUM/ORIENTATION: Yes alert, Yes oriented to person, Yes oriented to place and Yes oriented to time Skin: COMMON NORMALS: no rashes or lesions noted GENERAL SKIN EXAM: no rashes or lesions noted Course Vital Signs: Vital signs: Vital Signs Temperature 98.5 F 07/21/21 14:39 Pulse Rate 104 H 07/21/21 14:39 Respiratory Rate 20 H 07/21/21 14:39 Blood Pressure 138/102 07/21/21 14:39 Pulse Oximetry 93 07/21/21 14:[address] [facility] - General Adult Medical Decision Making Patient does not want any form of evaluation today. She is simply requesting refills on her chronic medications and a referral to a primary care provider Discharge Plan Discharge Patient Disposition: Home Clinical Impression: Encounter for medication refill Condition: Stable Prescriptions: Continued atorvastatin 10 mg tablet 10 mg PO BEDTIME Qty: 30 0RF metformin 1,000 mg tablet 1,000 mg PO BID Qty: 60 0RF glimepiride 4 mg tablet 4 mg PO BID Qty: 60 0RF omeprazole 20 mg capsule,delayed release(DR/EC) 20 mg PO DAILY Qty: 30 0RF duloxetine 60 mg capsule,delayed release(DR/EC) 60 mg PO DAILY Qty: 30 0RF Changed gabapentin 800 mg tablet 400 mg PO TID Qty: 90 0RF Serevent Diskus 50 mcg/dose blister with device 1 inh inhalation BID Qty: 60 0RF Rx Instructions: 1 inh inhalation; ProAir HFA 90 mcg/actuation HFA aerosol inhaler 1 puff inhalation Q6H PRN (Reason: shortness of breath or wheezing) Qty: 8.5 0RF Rx Instructions: 1 puff inhalation; No Action triamcinolone acetonide 0.1 % ointment 1 applic topical BID Qty: 80 1RF Rx Instructions: To itchy areas on arms and abdomen no more than 3wks/mo (DME) lancets [FreeStyle Lancets] 28 gauge misc See Rx Instructions .ROUTE .MEDSUPPLY Qty: 100 3RF Rx Instructions: one daily- glucose check OneTouch Ultra Blue Test Strip Strip See Rx Instructions .ROUTE .COMPLEX Qty: 100 0RF Dose Instruction: USE TO TEST ONCE DAILY Rx Instructions: USE TO TEST ONCE DAILY Discharge Orders: Discharge ED (Routine); Ordered 07/21/21 Ordered By: Jelly Navarro Activity Restrictions/Additional Instructions: I have placed a referral with case management to set you up with a primary care provider. You should hear from them within the next few days. If not please contact us so we can set you up with a primary care provider. You have been provided prescriptions for your normal medications. We will not continue filling routine medications from the emergency department. Coding Level of Care Code ED Entry Clerk for Hattie Fwd Exam Comprehensive
--- NOTE | 2021-07-23 09:20 | DCPLANNER ---
Addendum entered by Racquel Carter 09/23/21 09:41: Patient had a follow up appointment for patient with Internal Medicine with Dr. Atkinson on 08.09.21 - patient did attend appointment. Original Note: statistics manager had message to speak with patient about getting established with a primary care physician. Patient stated that she would like to see Dr. Atkinson. statistics manager called the office of Dr. Atkinson, spoke with Belen, gave clinic patients information, a follow up appointment was scheduled for Monday, August 09, 2021 at 1:[address] Atkinson. statistics manager gave patient the appointment information.
== END 2021-07-21 16:31 | disposition home or self-care (01) ==
PROVIDERS: Emergency Provider Physician Assistant
DX: Z76.0 Encounter for issue of repeat prescription (principal)
CPT/HCPCS: 99283

== ENCOUNTER 2022-01-08 13:17 | Emergency (ER) | payer MEDICAID, SELFPAY ==
[2022-01-08 13:19] VITALS: BP 114/58; PULSE 97; RESP 15; O2SAT 95; BMI 29.2
--- NOTE | 2022-01-08 13:33 | XRR_ITS ---
PROCEDURE INFORMATION: Exam: XR Right Ribs with PA Chest Exam date and time: 01/08/2022 2:58 PM Age: 61 years old Clinical indication: Injury or trauma; Fall; Rib area; Blunt trauma (contusions or hematomas) TECHNIQUE: Imaging protocol: Radiologic exam of the Right ribs with PA chest. Views: 3 views COMPARISON: CR XR chest 1V portable [id number] 02/25/2019 2:11 PM FINDINGS: Tubes, catheters and devices: Stable postoperative metallic fixation of the cervical spine with or without metallic artifact. Lungs: Stable COPD . Pleural spaces: Unremarkable. No pleural effusion. No pneumothorax. Heart/Mediastinum: Unremarkable. No cardiomegaly. Bones/joints: Moderate right primary glenohumeral osteoarthritis. Moderate thoracic spondylosis. XR/XR ribs RT mn 3V w CXR1V [id number] IMPRESSION: 1. No acute posttraumatic findings. 2. If pain persists, CT may be helpful to rule out occult pathology if clinically indicated.
--- NOTE | 2022-01-08 13:33 | XRR_ITS ---
PROCEDURE INFORMATION: Exam: XR Right Hip Exam date and time: 01/08/2022 2:55 PM Age: 61 years old Clinical indication: Injury or trauma; Fall; Blunt trauma (contusions or hematomas); Right; Hip TECHNIQUE: Imaging protocol: Radiologic exam of the Right hip. Views: 1 view hip with pelvis when performed. COMPARISON: CT pelvis wo con [id number] 06/26/2016 8:41 PM FINDINGS: Bones/joints: Unremarkable. No acute fracture. Soft tissues: Unremarkable. XR/XR hip RT 2-3V wo/w pel* [id number] IMPRESSION: 1. No acute findings. 2. If pain persists, CT may be helpful to rule out occult pathology if clinically indicated.
--- NOTE | 2022-01-08 13:46 | W.ED.FALL ---
HPI - Fall General: Chief Complaint: Fall Stated Complaint: RIGHT RIB PAIN S/P FALL Time Seen by Provider: 01/08/22 13:26 History of Present Illness: 61-year-old female presents with right rib pain and right hip pain. Patient reports that she fell last night. That she has not taken thing for the pain. She presents today because she is having continued pain. She has pain with any movement and with breathing in her ribs. She denies loss of consciousness or hit her head. No other systemic complaints. Associated symptoms-after fall: Reports chest pain (Right ribs); Denies abdominal pain or headache(s) Review of Systems Const: Denies: fever(s) or chills ENMT: Denies: throat pain or ear or mastoid pain Card: Reports: chest pain (Right ribs); Denies: palpitations or irregular heart rhythm Resp: Reports: pain on inspiration; Denies: dyspnea or wheezing GI: Denies: abdominal pain, nausea or vomiting : Denies: flank pain or difficulty voiding Musc: Reports: joint pain and other (Please see HPI) Skin/Breast: Denies: rash or erythema Neuro: Denies: headache(s) or dizziness Psych: Denies: anxiety or depression PFSH ED PFSH: Medical History COPD (chronic obstructive pulmonary disease) Diabetes Surgical History H/O tubal ligation History of carpal tunnel surgery Family History Grandmother Diabetes Social History Smoking and tobacco status: current every day smoker Alcohol intake: former Adopted: No Marital status: Legally Number of children: 4 service: No History of recent travel: No Current gender identity: Female Physical Exam Const: COMMON NORMALS: patient oriented x3 NUTRITIONAL APPEARANCE: obese HENMT: COMMON NORMALS: normocephalic, atraumatic and hearing grossly normal bilaterally HEAD & SCALP: normocephalic and atraumatic Eye: COMMON NORMALS: Equal, round and reactive pupils present and EOMs intact bilaterally PUPIL: Yes Equal, round and reactive pupils present Neck/C-Spine: COMMON NORMALS: full ROM, supple and no JVD Chest: CHEST: Yes localized rib tenderness with anteroposterior compression Resp: COMMON NORMALS: normal respiratory effort, No use of accessory muscles and clear to auscultation bilaterally AUSCULTATION: clear to auscultation bilaterally Cardio: COMMON NORMALS: no JVD, regular rate and regular rhythm RATE: regular rate RHYTHM: regular rhythm GI: COMMON NORMALS: Normal to inspection, nondistended, normoactive bowel sounds present, Soft to palpation and non-tender PALPATION: Yes Soft to palpation Extremity: RIGHT LOWER EXTREMITY: Yes hip joint Right hip: Yes palpation (Tenderness to palpation) Neuro: COMMON NORMALS: patient oriented x3, CN's II-XII intact bilaterally, moves all extremities and no focal motor deficits Psych: COMMON NORMALS: mental status grossly normal and speech normal SPEECH: Yes normal speech Skin: COMMON NORMALS: no wounds Course Vital Signs: Vital signs: Vital Signs Pulse Rate 97 01/08/22 13:19 Respiratory Rate 15 01/08/22 13:19 Blood Pressure 114/58 01/08/22 13:19 Pulse Oximetry 95 01/08/22 13:19 Oxygen Delivery Me thod 01/08/22 13:19 MDM - Fall Medical Decision Making Patient negative CT hip and x-ray. Patient is able to ambulate. Patient likely with rib contusion and hip contusion. Patient should follow-up with her primary care provider if symptoms or not improved over the next week or continue to worsen. Patient stable discharged home Lab Data Radiology Impressions Hip/Pelvis X-Ray 01/08/22 13:33 IMPRESSION: 1. No acute findings. 2. If pain persists, CT may be helpful to rule out occult pathology if clinically indicated. Ribs X-Ray 01/08/22 13:33 IMPRESSION: 1. No acute posttraumatic findings. 2. If pain persists, CT may be helpful to rule out occult pathology if clinically indicated. Discharge Plan Discharge Patient Disposition: Home Clinical Impression: Fall Qualifiers: Encounter type: initial encounter Qualified Code(s): W19.XXXA - Unspecified fall, initial encounter Contusion of rib on right side Qualifiers: Encounter type: initial encounter Qualified Code(s): S20.211A - Contusion of right front wall of thorax, initial encounter Contusion of right hip Qualifiers: Encounter type: initial encounter Qualified Code(s): S70.01XA - Contusion of right hip, initial encounter Condition: Stable Prescriptions: No Action triamcinolone acetonide 0.1 % ointment 1 applic topical BID Qty: 80 1RF Rx Instructions: To itchy areas on arms and abdomen no more than 3wks/mo atorvastatin 10 mg tablet 10 mg PO BEDTIME Qty: 90 3RF duloxetine 60 mg capsule,delayed release(DR/EC) 60 mg PO DAILY Qty: 90 3RF metformin 1,000 mg tablet 1,000 mg PO BID Qty: 180 3RF omeprazole 20 mg capsule,delayed release(DR/EC) 20 mg PO DAILY Qty: 90 3RF ibuprofen 600 mg tablet 600 mg PO Q6H PRN (Reason: pain) Qty: 60 4RF loratadine 10 mg tablet 10 mg PO DAILY PRN (Reason: allergy symptoms) Qty: 90 3RF (DME) lancets [FreeStyle Lancets] 28 gauge misc See Rx Instructions .ROUTE .MEDSUPPLY Qty: 100 3RF Rx Instructions: one daily- glucose check glimepiride 4 mg tablet 4 mg PO BID Qty: 180 3RF blood sugar diagnostic Strip See Rx Instructions .ROUTE .COMPLEX Qty: 100 4RF Dose Instruction: USE TO TEST ONCE DAILY Rx Instructions: USE TO TEST ONCE DAILY ProAir HFA 90 mcg/actuation HFA aerosol inhaler 1 puff inhalation Q6H PRN (Reason: shortness of breath or wheezing) Qty: 8.5 3RF Rx Instructions: 1 puff inhalation; Serevent Diskus 50 mcg/dose blister with device 1 inh inhalation BID Qty: 60 3RF Rx Instructions: 1 inh inhalation; gabapentin 400 mg capsule See Rx Instructions .ROUTE .COMPLEX Qty: 90 3RF Dose Instruction: TAKE 1 CAPSULE BY MOUTH THREE TIMES A DAY Rx Instructions: TAKE 1 CAPSULE BY MOUTH THREE TIMES A DAY Discharge Orders: Discharge ED (Routine); Ordered 01/08/22 Ordered By: Tomasz Crenshaw Discharge Diet: Advance as tolerated Discharge Activity: Increase activity as tolerated Patient Instructions: Hip Contusion (ED), Rib Contusion (ED), Opioid Safety, Pain Management Activity Restrictions/Additional Instructions: Tylenol or ibuprofen as needed for discomfort 4% topical lidocaine with menthol cream or gel use as directed on package as needed for pain, Voltaren/diclofenac cream use as directed on package as needed for pain Coding Level of Care Code ED District Court Administrator for Chg Fwd Exam Comprehensive
[2022-01-08] MEDS: ketorolac 30 mg/mL INJ 15 MG IM (14:05)
== END 2022-01-08 13:23 | disposition home or self-care (01) ==
PROVIDERS: Emergency Provider Student in an Organized Health Care Education/Training Program
DX: S70.01XA Contusion of right hip, initial encounter (principal); S20.211A Contusion of right front wall of thorax, initial encounter; Z79.84 Long term (current) use of oral hypoglycemic drugs; J44.9 Chronic obstructive pulmonary disease, unspecified; E11.9 Type 2 diabetes mellitus without complications; F17.210 Nicotine dependence, cigarettes, uncomplicated; W19.XXXA Unspecified fall, initial encounter
CPT/HCPCS: 71101; 73502; 96372; 99284; J1885

== ENCOUNTER 2023-10-25 13:55 | Outpatient (CLI) | payer MEDICAID, SELFPAY ==
--- NOTE | 2023-10-25 14:02 | MM_ITS ---
WS: [id number] BILATERAL 3D TOMOSYNTHESIS DIGITAL SCREENING MAMMOGRAPHY WITH CAD CLINICAL INFORMATION: SCREENING HISTORY: Screening mammogram. No current complaints. COMPARISON: 2011 TECHNIQUE: Bilateral CC and MLO views. FINDINGS: Scattered fibroglandular densities bilaterally. No suspicious focal mass, asymmetry, calcifications, or architectural distortion. No evidence of malignancy. Incidental punctate and lucent centered calci fications MM/[place] [id number] IMPRESSION: DENSITY: There are scattered areas of fibroglandular density. BI-RADS: 2 - Benign. FOLLOW UP: 1 Year Follow-up Recommend return to annual screening mammography.
== END 2023-10-25 13:56 | disposition home or self-care (01) ==
PROVIDERS: PCP Nurse Practitioner Family; Visit Provider Family Medicine
DX: Z12.31 Encounter for screening mammogram for malignant neoplasm of breast (principal); R92.323 Mammographic fibroglandular density, bilateral breasts; R92.1 Mammographic calcification found on diagnostic imaging of breast
CPT/HCPCS: 77063; 77067

== ENCOUNTER 2023-11-06 08:52 | Outpatient (CLI) | payer MEDICAID, SELFPAY ==
--- NOTE | 2023-11-06 08:55 | CT_ITS ---
WS: [id number] LDCT LUNG CANCER SCREENING HISTORY: HX OF TOBACCO USE TECHNIQUE: Axial imaging performed from the apices to 1 cm below the costophrenic angles. Coronal and sagittal reformats are submitted with axial MIP series. All CT scans at [facility] use at least one of these dose optimization techniques: automated exposure control; mA and/or kV adjustment per patient size (includes targeted exams where dose is matched to clinical indication); or iterativ e reconstruction. DLP: 61.92 mGy.cm DIvol: Mean CTDIvol: 1.40 (mGy) COMPARISON: None available. Diagnostic quality: Satisfactory Lungs: Moderate pulmonary hyperexpansion. Linear platelike atelectasis or scarring at the lung bases and RIGHT middle lobe. No mass or nodule. Mild interstitial thickening. No endobronchial lesions. Heart: Normal size heart with no pericardial effusion.. Other findings: Moderate atherosclerosis aorta. Normal size pulmonary artery. No adenopathy identifie d. Hepatic and splenic granulomata. No adrenal mass. Advanced thoracic spondylosis. Significant narro wing of the numerous disc spaces in the mid thoracic spine. Prior healed rib fractures in the posteri or RIGHT thorax. CT/CT lung screening [id number] IMPRESSION: LUNG-RADS: 1-Negative FOLLOW UP: 12 Month: Continue annual screening with LDCT OTHER FINDINGS (S MODIFIER): None.
== END 2023-11-06 08:53 | disposition home or self-care (01) ==
LOC: RAD 08:52
PROVIDERS: PCP Nurse Practitioner Family; Visit Provider Family Medicine
DX: Z12.2 Encounter for screening for malignant neoplasm of respiratory organs (principal); Z87.891 Personal history of nicotine dependence; J98.11 Atelectasis; I70.0 Atherosclerosis of aorta; M46.94 Unspecified inflammatory spondylopathy, thoracic region; D73.89 Other diseases of spleen; K75.3 Granulomatous hepatitis, not elsewhere classified
CPT/HCPCS: 71271